=== PATIENT | female | born 2000 | race African-American/Black ===

== ENCOUNTER 2021-09-14 14:37 | Emergency (ER) | payer OTHER, SELFPAY ==
[2021-09-14] VITALS (10 sets, daily range): BP systolic 102–121; BP diastolic 57–73; PULSE 36–82; RESP 17–35; TEMP 36.6; O2SAT 77–100; BMI 28.7
[2021-09-14] MEDS: SODIUM CHLORIDE 0.9% 1,000 ML 1000 ML IV (15:02)
[2021-09-14] MEDS: ONDANSETRON 4 MG/2 ML INJ IV (15:02)
[2021-09-14 15:06] LABS: Add Manual Diff / Slide Review NO; Basophils Absolute Auto 0 /uL (0-100); Basophils Percent Auto 0.3 % (0-2); Eosinophils Absolute Auto 200 /uL (0-450); Hematocrit 37.4 % (36-46); Hemoglobin 12.4 g/dL (12.0-16.0); Lymphocytes Absolute Auto 2300 /uL (1100-4500); Mean Corpuscular HGB Conc 33.1 % (30-36); Mean Corpuscular Hemoglobin 28.2 PG (26-34); Mean Corpuscular Volume 85.1 fL (80-100); Monocytes Absolute Auto 400 /uL (0-900); Monocytes Percent Auto 5.3 % (3-14); Neutrophils Absolute Auto 5500 /uL (1500-7000); Neutrophils Percent Auto 65.4 % (50-75); Platelet Count 247 X10^3/uL (150-400); Red Cell Distribution Width 13.9 % (11.6-14.8); White Blood Cell Count 8.4 X10^3/uL (4.5-11.0)
[2021-09-14 15:12] LABS: Alanine Aminotransferase 15 IU/L (<35); Albumin 4.2 g/dL (3.5-5.0); Albumin Globulin Ratio 1.3 (1.0-2.8); Alkaline Phosphatase 42 U/L (38-126); Aspartate Aminotransferase 27 IU/L (14-36); BUN Creatinine Ratio 15.3 (6-22); Bilirubin Total 0.4 mg/dL (0.2-1.3); Blood Urea Nitrogen 11 mg/dL (7-17); Calcium 9.1 mg/dL (8.4-10.2); Carbon Dioxide 28 mmol/L (22-32); Chloride 104 mmol/L (98-107); Estimated Glomerular Filt Rate > 60.0 mL/min (>60); Globulin 3.2 g/dL (1.7-4.1); Glucose 87 mg/dL (70-100); HEMOLYSIS < 15 (0-50); Potassium 3.8 mmol/L (3.4-5.1); Sodium 139 mmol/L (137-145); Total Protein 7.4 g/dL (6.3-8.2)
[2021-09-14] MEDS: MECLIZINE HCL 12.5 MG TABLET 50 MG PO (15:31)
--- NOTE | 2021-09-14 15:45 | ED_ITS ---
HPI - Dizziness General Chief Complaint: Dizziness Stated Complaint: Fainted 2/3 days ago. [facility] sent [facility] here Time Seen by Provider: 09/14/21 14:53 Source: patient Mode of arrival: Ambulatory History of Present Illness HPI Narrative: The patient has been complaining of dizziness for 3 days. At onset she had nausea and vomiting, none at this time. Dizziness persists. She has no visual changes, no confusion, no focal weakness or numbness. She did pass out 3 days ago briefly. This was the time when she is vomiting. She denies URI symptoms. She has no ear discomfort, rhinorrhea sore throat. She has no cough, she denies fever chills. She has no palpitations. Her LMP was 3 weeks ago and was normal. She has no chronic GI problems. The nausea vomiting has resolved. She has no complaints. She is on no prescription medications. She has a mild headache. She has no history of migraines, or chronic headaches. Related Data Previous Rx's Medication Instructions Recorded meclizine 25 mg tablet 25 mg PO QID PRN #20 tab 09/14/21 Allergies Allergy/AdvReac Type Severity Reaction Status Date / Time No Known Drug Allergies Allergy Verified 09/14/21 14:54 Review of Systems Constitutional Constitutional: Reports as per HPI, Denies chills, Denies fatigue, Denies fever(s) and Reports headache(s) Eyes Eyes: Denies blurry vision, Denies change in vision and Denies diplopia ENT Ears, Nose, Mouth, and Throat: Reports dizziness, Denies otalgia, Reports headache(s), Denies nasal congestion and Denies sore throat Cardiovascular Cardiovascular: Denies chest pain, Reports syncope, Denies rapid heart rate, Denies edema, Denies lightheadedness and Denies dyspnea Respiratory Respiratory: Denies chest congestion, Denies cough and Denies dyspnea Gastrointestinal Gastrointestinal: Reports as per HPI Genitourinary Genitourinary: Denies dysuria and Denies urinary urgency Musculoskeletal Musculoskeletal: Denies arthralgias, Denies back pain and Denies myalgias Integumentary/Breasts Skin/Breast: Denies rash Neurologic Neurologic: Denies confusion, Reports dizziness, Reports syncope and Reports headache(s) Psychiatric Psychiatric: Denies confusion Endocrine Endocrine: Denies fatigue Patient History Social History Smoking Status: Never smoker Smoking Status: Never smoker alcohol intake frequency: other Substance Use Type: does not use Exam Initial Vital Signs Initial Vital Signs: Vital Signs Pulse Rate 36 L 09/14/21 14:43 Pulse Oximetry 77 L 09/14/21 14:43 Const General: cooperative, healthy appearing and comfortable HENMT Head: normal to inspection, normocephalic and atraumatic Ears: TM's normal bilaterally Nose: nares normal Mouth: oral mucosae normal Throat: posterior oropharynx normal Eyes Conjunctivae: conjunctivae normal Sclera: sclerae normal EOM: EOM intact bilaterally Resp Auscultation: clear to auscultation bilaterally Cardio Rate: regular rate Rhythm: regular rhythm Heart Sounds: S1 normal, S2 normal and no murmurs GI Inspection: normal to inspection Palpation: soft and No tender Auscultation: normal bowel sounds Back/Spine/Pelvis Back: No CVA tenderness Thoracic/Lumbar Spine: thoracic and lumbar spine normal to inspection Skin General: no rashes or lesions noted Neuro General: patient alert, oriented and Gregory Hallpike (Positive to the right.) Cranial Nerves: CN's II-XI intact bilaterally Cognition: normal cognition Speech: speech normal Motor: muscle tone normal throughout Sensory Exam: no sensory deficits noted Extrem General: normal to inspection and full ROM Psych Mental Status: mental status grossly normal Course Course Course Narrative: She is asymptomatic after single dose of meclizine. Labs are reassuring. She is sitting up, feeling much better. Orders Ordered: ED Orders 09/14/21 14:50 Complete Blood Count AUTO DIFF Stat Comprehensive Metabolic Panel Stat 09/14/21 15:43 COVID19 -Nasal swab/Pre-Proc Stat Discontinued Medications Sodium Chloride (Normal Saline 0.9%) 1,000 mls @ 1,000 mls/hr IV BOLUS ONE Stop: 09/14/21 15:56 Last Infusion: 09/14/21 15:51 Dose: 0 mls/hr Documented by: Admin: 09/14/21 15:02 Dose: 1,000 mls/hr Documented by: DEON Meclizine HCl (Meclizine Hcl 12.5 Mg Tablet) 50 mg PO NOW ONE Stop: 09/14/21 15:29 Last Admin: 09/14/21 15:31 Dose: 50 mg Documented by: DEON Ondansetron HCl (Ondansetron 4 Mg/2 Ml Inj) 4 mg IV NOW ONE Stop: 09/14/21 14:58 Last Admin: 09/14/21 15:02 Dose: 4 mg Documented by: DEON Vital Signs Vital signs: Vital Signs - 8 hr 09/14/21 14:43 09/14/21 14:44 09/14/21 14:50 Temperature 98 F Pulse Rate 36 L 69 76 Respiratory Rate 17 Blood Pressure 121/73 121/73 Pulse Oximetry 77 L 84 L 98 09/14/21 15:00 09/14/21 15:01 09/14/21 15:30 Temperature Pulse Rate 71 74 82 Respiratory Rate 31 H Blood Pressure 111/73 108/57 L Pulse Oximetry 100 100 100 09/14/21 16:00 09/14/21 16:02 09/14/21 16:30 Temperature Pulse Rate 76 69 73 Respiratory Rate 35 H 29 H 22 Blood Pressure 102/59 L 108/69 Pulse Oximetry 100 100 94 MDM - Dizziness Lab Data Result diagrams: 09/14/21 14:50 09/14/21 14:50 Labs: Lab Results 09/14/21 09/14/21 09/14/21 Range/Units 14:50 14:50 15:43 WBC 8.4 (4.5-11.0) X10^3/uL RBC 4.40 (4.0-5.2) X10^6/uL Hgb 12.4 (12.0-16.0) g/dL Hct 37.4 (36-46) % MCV 85.1 (80-100) fL MCH 28.2 (26-34) PG MCHC 33.1 (30-36) % RDW 13.9 (11.6-14.8) % Plt Count 247 (150-400) X10^3/uL Neut % (Auto) 65.4 (50-75) % Lymph % (Auto) 27.0 (25-40) % [place] % (Auto) 5.3 (3-14) % Eos % (Auto) 2.0 (2-4) % Baso % (Auto) 0.3 (0-2) % Neut # (Auto) 5500 (2627-4053) /uL Lymph # (Auto) 2300 (5918-4274) /uL [place] # (Auto) 400 (0-900) /uL Eos # (Auto) 200 (0-450) /uL Baso # (Auto) 0 (0-100) /uL Sodium 139 (137-145) mmol/L Potassium 3.8 (3.4-5.1) mmol/L Chloride 104 (98-107) mmol/L Carbon Dioxide 28 (22-32) mmol/L BUN 11 (7-17) mg/dL Creatinine 0.72 (0.52-1.04) mg/dL Estimated GFR > 60.0 (>60) mL/min BUN/Creatinine Ratio 15.3 (6-22) Glucose 87 (70-100) mg/dL Calcium 9.1 (8.4-10.2) mg/dL Total Bilirubin 0.4 (0.2-1.3) mg/dL AST 27 (14-36) IU/L ALT 15 (<35) IU/L Alkaline Phosphatase 42 (38-126) U/L Total Protein 7.4 (6.3-8.2) g/dL Albumin 4.2 (3.5-5.0) g/dL Globulin 3.2 (1.7-4.1) g/dL Albumin/Globulin Ratio 1.3 (1.0-2.8) SARS-CoV-2 (PCR) Negative (Negative) Point of Care Testing Test Results Negative Urine Dip Bedside Urine Glucose Negative Bedside Urine Bilirubin - Negative Bedside Urine Ketone - Negative Urine Specific [place] 1.015 Bedside Urine Occult Blood - Negative Bedside Urine pH 6.0 Bedside Urine Protein - Negative Bedside Urine Urobilinogen - Negative Bedside Urine Nitrite - Negative Bedside Urine Leukocytes - Negative Esterase Discharge Plan Departure Patient Disposition: Home Clinical Impression: Labyrinthitis of right ear Instructions: Labyrinthitis Activity Restrictions/Additional Instructions: Meclizine every 6 hours as needed for dizziness. Rest. Be sure you are drinking plenty of fluids remain well hydrated. If not improved within 2-3 days follow-up with your doctor. Return here if necessary Prescriptions: New meclizine 25 mg tablet 25 mg PO QID PRN (Reason: dizziness) Qty: 20 RF: 0 Stand Alone Forms: Work Release Note
[2021-09-14 16:17] LABS: COVID19 -Nasal RAPID Negative (Negative)
== END 2021-09-14 17:31 | disposition home or self-care (01) ==
PROVIDERS: Student in an Organized Health Care Education/Training Program; Emergency Provider Emergency Medicine
DX: H83.01 Labyrinthitis, right ear (principal); R11.2 Nausea with vomiting, unspecified; R55 Syncope and collapse; R51.9 Headache, unspecified; Z20.822 Contact with and (suspected) exposure to COVID-19
CPT/HCPCS: 36415; 80053; 81003; 81025; 85025; 87635; 93005; 93010; 96361; 96374; 99284; C9803; J2405